=== PATIENT | male | born 1940 | race Caucasian/White ===

== ENCOUNTER 2017-02-07 08:48 | Day surgery (SDC) | payer MEDICARE, BC ==
[~2017-02-07] VITALS: Ht 165.1 cm; Wt 67.6 kg
[2017-02-07] MEDS ORDERED: SENSIPAR30 MG PO (10:09)
[2017-02-07] MEDS ORDERED: LOVASTATIN40 MG PO (10:10)
[2017-02-07] MEDS ORDERED: TOPROL XL25 MG PO (10:11)
[2017-02-07] MEDS ORDERED: ELIQUIS2.5 MG PO (10:12)
[2017-02-07] MEDS ORDERED: RENVELA800 MG PO (10:12)
[2017-02-07 10:25] VITALS: Ht 165.1 cm; Wt 67.6 kg
[2017-02-07 10:48] LABS: BASOPHILS 0.6 % (0-2); EOSINOPHILS 1.6 % (0-7); HEMATOCRIT 35.6 % (42.0-54.0); HEMOGLOBIN 11.3 g/dL (13.5-17.5); IMMATURE GRANULOCYTES 0.2 % (0-5); LYMPHOCYTES 20.1 % (15-50); MCH 31.7 pg (26.0-34.0); MCHC 31.7 g/dL (31.0-37.0); MEAN PLATELET VOLUME 9.5 fL (7.4-10.4); MONOCYTES 12.1 % (2-11); NEUTROPHILS 65.4 % (40-80); PLATELET COUNT 203 10x3/uL (130-400); RBC 3.56 10x6/uL (4.20-6.10); RDW 13.9 % (11.5-14.5); WBC 8.8 10x3/uL (4.8-10.8)
[2017-02-07 10:54] LABS: ANION GAP 13.8 mmol/L (8-16); CARBON DIOXIDE 26.5 mmol/L (21.0-32.0); CREATININE - SERUM 5.1 mg/dL (0.6-1.3); POTASSIUM - SERUM 4.3 mmol/L (3.5-5.1)
[2017-02-07 10:59] LABS: APTT 31.5 SECONDS (22.8-39.4); INR 1.09 (0.85-1.17); PROTIME 13.9 SECONDS (11.6-15.0)
[2017-02-07] MEDS ORDERED: HYDROCODON-ACE1 EAC7 PO (18:02)
[2017-02-07] MEDS ORDERED: FLOMAX0.4 MG PO (18:39)
--- NOTE | 2017-02-10 10:14 | OP ---
PATIENT NAME: NISHI ROSSI MEDICAL RECORD: [id number] :39 LOCATION:D.OPS ADMISSION DATE: SURGEON: GILBERT SMITH MD OPERATION DATE: 02/07/17 SURGEON: Gilbert Smith MD REFERRING PHYSICIAN: Mekhi Moore M.D. PREOPERATIVE DIAGNOSIS: Mechanical complication of PD catheter and symptomatic initial reducible left inguinal hernia along with end-stage renal disease and dependence on renal dialysis. POSTOPERATIVE DIAGNOSIS: Mechanical complication of PD catheter and symptomatic initial reducible left inguinal hernia along with end-stage renal disease and dependence on renal dialysis. OPERATION PERFORMED: Preperitoneal mesh repair of left indirect inguinal hernial of removal of peritoneal dialysis catheter from the left upper quadrant. PREOPERATIVE NOTE: The patient is 76-year-old white male patient from [place], [place]. He has end-stage renal disease and has been on peritoneal dialysis, but has a functioning fistula in his left arm and he is to be taken off of peritoneal dialysis and he is to have his PD catheter removed. He also has a symptomatic reducible initial left inguinal hernia which is to be repaired. He also has a penile implant. PROCEDURE: We placed him under general anesthesia in the supine position. He was prepped and draped in a sterile manner with the left arm adducted. A short transverse incision was made just above the level of the internal inguinal ring on left and incision was carried down to the external oblique aponeurosis with electrocautery dissection. Blunt dissection was then used to enter the preperitoneal space and blunt dissection predominantly reduced a large indirect inguinal hernia and the sac was from the cord structures. A portion of the sac was actually resected and the peritoneum closed with running locked 3-0 Vicryl. The patient's penile prosthesis prevented free access to the pubic tubercle, but very adequate dissection was made in order to place a preperitoneal mesh. I chose a Bard Omni mesh and this was placed into the preperitoneal space posterior to the inguinal canal. It completely covered Coopers ligament and the floor of the canal and the internal inguinal ring and overlapped the iliac vessels and the spermatic cord structures laterally. The peritoneal sac was kept above the mesh which was folded under the anterior abdominal wall to complete its positioning. The wound was irrigated several times with antibiotic solution and infiltrated and irrigated with half percent Marcaine with epinephrine. The transversus abdominus and transversalis fascia was approximated anterior to the mesh with several 3-0 Vicryl simple sutures which also included the anterior layer of the underlying mesh prosthetic to prevent it migrating. The external oblique aponeurosis was then approximated with interrupted 3-0 Vicryl. The wound was further infiltrated with Marcaine. The Tanya's fascia was closed with interrupted inverted 3-0 Vicryl and the skin closed with running intracuticular 4-0 Monocryl and Dermabond glue. It was then dressed with Maxorb AG, Tegaderm, and Cavilon skin prep. I then made a transverse incision in the left upper quadrant over the palpable peritoneal dialysis catheter. I dissected both of the background felt cuffs from the surrounding tissue. The external segment of catheter with the superficial cuff OPERATIVE REPORT [id number] NISHI ROSSI was removed and discarded and then the deeper cuff was dissected from the rectus sheath and the remaining intact catheter removed and discarded. The fascial defect was closed with [id number] 0 Vicryl. The wound was irrigated with Ancef/gentamicin solution. Infiltrated with one half percent Marcaine with epinephrine and closed with interrupted inverted 3-0 Vicryl and running intracuticular 4-0 Monocryl and Dermabond glue. It was dressed with Maxorb AG, Tegaderm, and Cavilon skin prep. The old catheter exit site was dressed with a small amount of Betadine ointment, covered with Maxorb AG and dressed with Tegaderm, and with Cavilon skin prep. The patient was then awakened from his anesthetic and in stable condition, taken to the recovery room. Blood loss during the operation was trivial and none replaced. All sponges, instruments, and needles were accounted for at the end of the procedure. No drain was used. The surgical specimen submitted for histopathology was the hernia sac. Plan for the patient to go home today and resume activities as tolerated. He is to use ice off and on today and this evening and thereafter as needed for pain over the incision sites. He may shower and wash over the waterproof dressings as desired. He is given a prescription for 15 tablets of [place] 5/325. He is to take one by mouth every six hours as needed for pain. GILBERT SMITH MD at 1014 CC: MEKHI MOORE MD [id number] DICTATION DATE: 02/07/17 1400 ALFALFA DEHYDRATOR OPERATOR: DM 02/08/[address] [facility] 02/07/17 [id number] [place] [address]
== END 2017-02-07 20:15 | disposition home or self-care (01) ==
LOC: D.OPS 08:48
PROVIDERS: Surgery
DX: T85.691A Other mechanical complication of intraperitoneal dialysis catheter, initial encounter (principal); K40.90 Unilateral inguinal hernia, without obstruction or gangrene, not specified as recurrent; I12.0 Hypertensive chronic kidney disease with stage 5 chronic kidney disease or end stage renal disease; N18.6 End stage renal disease; Z99.2 Dependence on renal dialysis; J44.9 Chronic obstructive pulmonary disease, unspecified; Z01.812 Encounter for preprocedural laboratory examination

== ENCOUNTER 2017-04-17 18:00 | Inpatient (IN) | payer MEDICARE, BC ==
[~2017-04-17] VITALS: Ht 165.1 cm; Wt 63.3 kg
[~2017-04-17 18:00] MED LIST: ELIQUIS2.5 MG PO; FLOMAX0.4 MG PO; HYDROCODON-ACE1 EAC7 PO; LOVASTATIN40 MG PO; RENVELA800 MG PO; SENSIPAR30 MG PO; TOPROL XL25 MG PO
[2017-04-17] MEDS ORDERED: CARAFATE1 G PO (18:23)
[2017-04-18 08:58] VITALS: Ht 165.1 cm; Wt 63.3 kg
[2017-04-21 08:00] VITALS: BP 154/83
== END 2017-04-21 12:40 | disposition home or self-care (01) | DRG 64 ==
LOC: D.M2 18:00
PROVIDERS: ADMIT Internal Medicine
PROC: 5A1D60Z (ICD-10-PCS; principal; 2017-04-19)
DX: I63.511 Cerebral infarction due to unspecified occlusion or stenosis of right middle cerebral artery (principal); N18.6 End stage renal disease; G93.40 Encephalopathy, unspecified; I12.0 Hypertensive chronic kidney disease with stage 5 chronic kidney disease or end stage renal disease; Z99.2 Dependence on renal dialysis; I48.0 Paroxysmal atrial fibrillation; Z87.891 Personal history of nicotine dependence; D63.1 Anemia in chronic kidney disease; E83.39 Other disorders of phosphorus metabolism